=== PATIENT | female | born 1965 | race Two or more races ===

== ENCOUNTER 2025-09-01 22:05 | Emergency (ER) | payer OTHER ==
[~2025-09-01] VITALS: Ht 180.3 cm; Wt 90.7 kg
[2025-09-01 22:25] VITALS: TEMP 98.2
[2025-09-01] MEDS ORDERED: IBUPROFEN 400 MG TABLET ONE (22:52)
[2025-09-01] MEDS: IBUPROFEN 400 MG TABLET PO ONE (22:54)
[2025-09-02 00:05] VITALS: BP 151/74; O2SAT 98
== END 2025-09-02 00:06 | disposition home or self-care (01) ==
LOC: ER 22:15
DX: I10 Essential (primary) hypertension (principal)
CPT/HCPCS: 99283; L0172